=== PATIENT | female | born 2000 | race Caucasian/White ===

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

== ENCOUNTER 2024-03-11 10:59 | Outpatient (REF) | payer MEDICAID, SELFPAY ==
[2024-03-12 12:53] LABS: Chlamydia Result Negative (Negative); GC Result Negative (Negative)
== END 2024-03-11 11:00 | disposition home or self-care (01) ==
LOC: LBN 10:59
PROVIDERS: PCP Student in an Organized Health Care Education/Training Program; Referring Provider Student in an Organized Health Care Education/Training Program; Visit Provider Student in an Organized Health Care Education/Training Program
DX: Z11.3 Encounter for screening for infections with a predominantly sexual mode of transmission (principal); Z30.017 Encounter for initial prescription of implantable subdermal contraceptive; Z30.09 Encounter for other general counseling and advice on contraception; N94.6 Dysmenorrhea, unspecified
CPT/HCPCS: 87491; 87591